=== PATIENT | female | born 1985 | race Caucasian/White ===

== ENCOUNTER 2019-07-03 07:17 | Observation (INO) | payer MEDICAID ==
[2019-07-02 14:40] VITALS: BMI 29.9
[~2019-07-03] VITALS: Ht 152.4 cm; Wt 85.0 kg
[2019-07-03] VITALS (29 sets, daily range): BP systolic 100–153; BP diastolic 64–90; PULSE 74–92; RESP 12–24; Ht 152.4 cm; Wt 85.0 kg
[~2019-07-03 07:17] MED LIST: HYDR-4011 PO
[2019-07-03] MEDS ORDERED: SOD CHLORIDE 0.9% 1,000 ML IV SCH (11:00)
[2019-07-03] MEDS ORDERED: CEFAZOLIN 2 GM/50 ML (PMX) 50 ML IVPB ONE (11:00)
[2019-07-03] MEDS ORDERED: ISOSULFAN BLUE 1% 5 ML INJ SC ONE (13:30)
[2019-07-03] MEDS ORDERED: MIDAZOLAM 1 MG/ML 2 ML INJ ONE (13:49)
[2019-07-03] MEDS ORDERED: LIDOCAINE 2% (SDV) 5 ML INJ ONE (13:49)
[2019-07-03] MEDS ORDERED: PROPOFOL 20 ML ONE (13:49)
[2019-07-03] MEDS ORDERED: FENTAnyl 50 MCG/ML VIAL ONE (13:56)
[2019-07-03] MEDS ORDERED: FAMOTIDINE 20 MG INJ ONE (14:13)
[2019-07-03] MEDS ORDERED: DEXAMETHASONE 4 MG/ML 5 ML INJ ONE (14:13)
[2019-07-03] MEDS ORDERED: CEFAZOLIN 1 GM INJ ONE (14:13)
[2019-07-03] MEDS ORDERED: ONDANSETRON 4 MG INJ ONE (14:13)
[2019-07-03] MEDS ORDERED: HYDROmorphONE 2 MG/ML SYG ONE (14:17)
[2019-07-03] MEDS: D5W-0.45 NACL + KCL 20 MEQ 1,000 ML IV SCH (15:22)
[2019-07-03] MEDS ORDERED: ACETAMINOPHEN 1000MG/100ML IV 100 ML IVPB PRN (15:30)
[2019-07-03] MEDS ORDERED: morphine 2 MG INJ IV PRN (15:30)
[2019-07-03] MEDS ORDERED: ONDANSETRON 4 MG INJ IV PRN ×2 (15:30→16:30)
[2019-07-03] MEDS ORDERED: HYDROmorphONE 1 MG/5 ML IV SYRINGE IV PRN ×3 (16:30)
[2019-07-03] MEDS ORDERED: FENTAnyl 50 MCG/ML VIAL IV PRN ×3 (16:30)
[2019-07-03] MEDS ORDERED: OXYCODONE/ACETAMINOPHEN (5/325) TAB PO PRN (16:30)
[2019-07-03] MEDS ORDERED: DIPHENHYDRAMINE 50 MG INJ IV PRN (16:30)
[2019-07-03] MEDS ORDERED: PROCHLORPERAZINE 10 MG INJ IV PRN (16:30)
[2019-07-03] MEDS ORDERED: MEPERIDINE 25 MG INJ IV PRN (16:30)
[2019-07-04 00:29] VITALS: BP 104/60; PULSE 89; RESP 18
[2019-07-04] MEDS: D5W-0.45 NACL + KCL 20 MEQ 1,000 ML IV SCH ×3 (03:09→15:22)
[2019-07-04 05:00] VITALS: BP 113/58; PULSE 73; RESP 18
[2019-07-04 07:20] VITALS: BP 121/62; PULSE 82; RESP 19
[2019-07-04 15:08] VITALS: BP 106/78; PULSE 95; RESP 20
== END 2019-07-04 19:50 | disposition home or self-care (01) ==
LOC: SDS 07:17 → REC 15:41 → INTOOBSV 15:41 → MS1 18:35
PROVIDERS: ADMIT Surgery Surgical Oncology; ATTEND Surgery Surgical Oncology
DX: C50.411 Malignant neoplasm of upper-outer quadrant of right female breast (principal); Z17.0 Estrogen receptor positive status [ER+]; C77.3 Secondary and unspecified malignant neoplasm of axilla and upper limb lymph nodes
CPT/HCPCS: 19301; 38525; 38900; 80048; 80053; 84703; 85025; 85610; 85730; 88307; J0690; J1100; J1170; J2250; J2405; J3010; J3480; Z7500; Z7512; Z7610; G0378; Q9968